=== PATIENT | female | born 1955 | race Asian ===

== ENCOUNTER 2023-12-14 09:40 | Emergency (ER) | payer MEDICARE, OTHER ==
[2023-12-14] MEDS ORDERED: iohexoL-300 100 ML VIAL ONE (09:56)
--- NOTE | 2023-12-14 10:03 | ED Physician Documentation ---
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 She did require a left posterior craniotomy for decompression at that time. She is not anticoagulated and takes amlodipine for blood pressure. Much of the history is from the because of patient's fatigue. She has had chest pressure for the last for 5 days with fatigue such that she stopped exercising. Today at 905 she and her were [place] the way [place] the [place] and they were parked in the car and she had a short episode of shaking with mild confusion afterwards lasting seconds. Now she has left-sided numbness which is contralateral to her prior symptomatology. PD PAST MEDICAL HISTORY - Past Medical History Past Medical History: Yes Neuro: CVA - Past Surgical History Neuro: Other - Allergies Allergies/Adverse Reactions: Allergies Allergy/AdvReac Type Severity Reaction Status Date / Time No Known Drug Allergies Allergy Verified 12/14/23 09:47 - Social History Does the pt smoke?: No Smoking Status: Never smoker PD ED PE NORMAL - Vitals Vital signs reviewed: Yes - General General: Alert and oriented X 3, No acute distress - HEENT HEENT: PERRL, EOMI - Neck Neck: Supple, no meningeal sign, No bony TTP - Cardiac Cardiac: RRR, No murmur - Respiratory Respiratory: No respiratory distress, Clear bilaterally - Abdomen Abdomen: Non tender - Back Back: No CVA TTP - Derm Derm: Normal color, Warm and dry - Extremities Extremities: No edema, No calf tenderness / cord - Neuro Neuro: Alert and oriented X 3 Eye Opening: Spontaneous Motor: Obeys Commands Verbal: Oriented GCS Score: 15 NIHSS - Time Time: 10:01 - Level of Consciousness Level of consciousness: (0) Alert, Keenly responsive LOC Questions: (0) Answers both Q's correct LOC Commands: (0) Performs both correctly - Gaze Best Gaze: (0) Normal - Visual Visual: (0) No loss - Facial Palsy Facial Palsy: (0) Normal, symmetrical movement - Motor Arms (both separate) Motor Arm (right): (0) No drift Motor Arm (left): (0) No drift - Motor Legs (both separate) Motor Leg (right): (1) Drift Motor Leg (left): (0) No drift - Limb Ataxia Limb Ataxia: (0) Absent - Sensory Sensory: (1) Txmi-fs-tvcwumfr loss (Left arm) - Best Language Best Language: (0) No aphasia - Dysarthria Dysarthria: (0) Normal - Extinction and Inattention (formally neg Extinction and inattention: (0) No abnormality - Total Score/Results Total Score/Result: 2 Results - Vitals Vitals: Vital Signs - 24 hr 12/14/23 12/14/23 12/14/23 09:57 12:30 13:00 Temperature 36.5 C Heart Rate 71 54 L 56 L Respiratory 18 13 17 Rate Blood Pressure 147/77 H 150/58 H 131/63 H O2 Saturation 100 99 99 12/14/23 12/14/23 12/14/23 13:30 14:00 14:30 Temperature Heart Rate 55 L 54 L 58 L Respiratory 17 14 16 Rate Blood Pressure 147/56 H 148/59 H 138/68 H O2 Saturation 99 98 98 12/14/23 12/14/23 12/14/23 15:00 15:30 16:00 Temperature Heart Rate 67 55 L 56 L Respiratory 15 17 13 Rate Blood Pressure 155/56 H 148/75 H 148/57 H O2 Saturation 99 99 99 12/14/23 16:30 Temperature Heart Rate 55 L Respiratory 13 Rate Blood Pressure 161/63 H O2 Saturation 99 Oxygen O2 Source Room air - EKG (time done) 1110 EKG releavant findings:: EKG personally interpreted by author of this note. Relevant findings are: Rate: Rate (enter#) (68) Rhythm: NSR [place]: Normal Intervals: Normal IA QRS: Normal Ischemia: Normal ST segments - Labs Labs: Laboratory Tests 12/14/23 12/14/23 12/14/23 10:34 10:34 10:34 WBC 5.7 RBC 4.15 L Hgb 12.6 Hct 37.5 MCV 90.4 MCH 30.4 MCHC 33.6 RDW 11.9 L Plt Count 172 MPV 10.3 Neut # (Auto) 4.3 Lymph # (Auto) 0.9 L Bowman # (Auto) 0.4 Eos # (Auto) 0.1 Baso # (Auto) 0.0 Absolute Nucleated RBC 0.00 Nucleated RBC % 0.0 PT 11.9 INR 1.1 Sodium 132 L Potassium 3.5 Chloride 99 L Carbon Dioxide 28 Anion Gap 5.0 L BUN 9 Creatinine 0.6 Estimated GFR (MDRD) 100 Glucose 91 Calcium 9.0 Total Bilirubin 0.4 AST 15 ALT 15 Alkaline Phosphatase 66 Troponin I High Sens Total Protein 6.4 Albumin 4.1 Globulin 2.3 Albumin/Globulin Ratio 1.8 Lipase 27 12/14/23 10:34 WBC RBC Hgb Hct MCV MCH MCHC RDW Plt Count MPV Neut # (Auto) Lymph # (Auto) Bowman # (Auto) Eos # (Auto) Baso # (Auto) Absolute Nucleated RBC Nucleated RBC % PT INR Sodium Potassium Chloride Carbon Dioxide Anion Gap BUN Creatinine Estimated GFR (MDRD) Glucose Calcium Total Bilirubin AST ALT Alkaline Phosphatase Troponin I High Sens 5.3 Total Protein Albumin Globulin Albumin/Globulin Ratio Lipase - Rads (name of study) CT of the head without contrast demonstrates a old left posterior stroke without acute findings. Relevant Findings:: Final report received, Discussed with rads, EMP independent interpretation of test CTA head and neck without significant vascular disease. Relevant Findings:: Final report received, EMP independent interpretation of test PD Medical Decision Making - ED course ED course: 68-year-old woman with reported history of hemorrhagic stroke in December 2021 presents with now shaking episodes it could be seizure-like activity but it was fairly short, and now new left-sided symptomatology. NIH stroke scale is 2 but the drift in the right leg is probably chronic from the prior stroke. Telestroke consultation was activated and she went over for CT/CTA of the head. Spoke with Dr. Apodaca, telestroke neurologist at 10:15 AM. She agrees that the patient would not be a thrombolytic candidate given her history of hemorrhagic stroke and relatively minor symptoms at this point. Will call me back after CTAs. Recommends MRI if CTA negative. Hold off on aspirin and other antiplatelet agents for now. Spoke with Dr. Apodaca again at 11:05 AM, she agrees that there is no LVO or significant vascular disease. Recommends MRI. Hold off on antiplatelet agent unless she were to have evidence of CVA on MRI. If negative could be discharged for outpatient neurology follow-up. At that time I had reevaluated the patient and her left-sided numbness was all but gone, definitely significantly improved. Waiting for MRI around 5 PM and they requested to leave as they were tired of the wait. They understand they were welcome to return anytime if worse, but at this time her numbness is completely resolved. Departure - Departure Disposition: 01 Home, Self Care Clinical Impression: Stroke-like symptoms Condition: Good Record reviewed to determine appropriate education?: Yes Instructions: ED Paraesthesias Comments: CAT scan and CT angiography of the head and neck were negative for obvious stroke, bleeding, or any issue with the blood vessels. We did see evidence of the old stroke from a few years ago. Our neurologist had recommended MRI but you are understandably became tired of the wait for that, follow-up with your primary care physician with consideration for neurology referral and/or MRI at your leisure. Return for new or worsening symptoms. Forms: PCP List
--- NOTE | 2023-12-14 10:30 | CT Report ---
PROCEDURE: Head W/O Stroke Protocol INDICATIONS: Neuro deficit, acute, stroke suspected TECHNIQUE: Noncontrast 4.5 mm thick angled axial sections acquired from the foramen magnum to the vertex, with c oronal reformats. For radiation dose reduction, the following was used: automated exposure control, adjustment of mA and/or kV according to patient size. COMPARISON: None. FINDINGS: Image quality: Excellent. CSF spaces: Basal cisterns are patent. No extra-axial fluid collections. Ventricles are normal in size and shape. Brain: No midline shift. No intracranial masses or hemorrhage. Wilder-white matter interface is norm al. Intracranial carotid calcifications. Age-related volume loss and small vessel ischemic change. E ncephalomalacia related to a remote moderate-sized left parietal infarct. Skull and face: Calvarium and visualized facial bones are intact, without suspicious lesions. Sinuses: Visualized sinuses and mastoids are clear. IMPRESSION: 1. Remote left-sided moderate excellent. 2. No acute intracranial process. Above discussed with Zenon Roberts MD at the time of dictation on 12/14/2023 at 1027 hours. This study fulfills neurological imaging criteria for inclusion or exclusion of acute stroke therapie s based on available published neurological imaging guidelines. Reviewed by: Zack Jara MD on 12/14/2023 10:29 AM PDT Approved by: Zack Jara MD on 12/14/2023 10:29 AM PDT Station ID: [id number]
--- NOTE | 2023-12-14 10:37 | CT Report ---
PROCEDURE: Angio Head/Neck INDICATIONS: stroke sx TECHNIQUE: After the administration of intravenous contrast, 1 mm thick sections acquired from the aortic arch t hrough the [place] of [place]. 3-dimensional mdgjalm-copgqdyll-sclnjoapqh (MIP) and/or volume renderin g reformats were acquired of the central intracranial vasculature and neck separately. For radiation dose reduction, the following was used: automated exposure control, adjustment of mA and/or kV acco rding to patient size. CONTRAST: 80ml omni 300 COMPARISON: CT head from the same time. FINDINGS: Image quality: Diagnostic. HEAD CT: CSF Spaces: Basal cisterns are patent. No extra-axial fluid collections. Ventricles are normal in size and shape. Brain: A moderate chronic left parietal infarct is noted. Skull and face: Calvarium and visualized facial bones appear intact, without suspicious lesions. Sinuses: Visualized sinuses and mastoids are clear. HEAD CT ANGIOGRAPHY: Anterior circulation: Intracranial internal carotid arteries are normal in size and flow. The flow within the paired anterior cerebral arteries is normal and symmetric. The flow within the middle cer ebral arteries is normal and symmetric. The anterior communicating artery is seen. No aneurysms are seen. Posterior circulation: Visualized portions of the vertebral arteries demonstrate normal caliber, and join to form a normal appearing basilar artery. Flow within the posterior cerebral arteries is norm al and symmetric. No aneurysms are seen. NECK CT ANGIOGRAPHY: Carotid system: The great vessels demonstrate a conventional anatomy as they arise from the aortic a rch. The origins of the common carotid arteries appear patent. The common carotid arteries demonstr ate normal caliber and courses. The bifurcation regions are both widely patent. The internal caroti d arteries demonstrate normal calibers and courses. Posterior circulation: The origins of the vertebral arteries both appear widely patent. The more prieto perior extracranial portions of both vertebral arteries also demonstrate normal courses and calibers. They join to form a normal appearing basilar artery. Soft tissues: Visualized neck soft tissues demonstrate no suspicious abnormalities. Bones: No suspicious bony lesions. Visualized cervical spine appears normally aligned. IMPRESSION: No significant intracranial arterial abnormality is seen. No significant abnormality is seen within the arteries of the neck. Moderate old left parietal infarct. The estimate of stenosis included in the report of the imaging study was calculated using the NASCET method Reviewed by: Zack Jara MD on 12/14/2023 10:35 AM PDT Approved by: Zack Jara MD on 12/14/2023 10:35 AM PDT Station ID: [id number]
[2023-12-14 10:42] LABS: BASOPHILS % (AUTO) 0.4 %; EOSINOPHILS # (AUTO) 0.1 10^3/uL (0.0-0.7); EOSINOPHILS % (AUTO) 0.9 %; HCT - HEMATOCRIT 37.5 % (37.0-47.0); HGB - HEMOGLOBIN 12.6 g/dL (12.0-16.0); LYMPHOCYTES # (AUTO) 0.9 10^3/uL (1.5-3.5); LYMPHOCYTES % (AUTO) 16.6 %; MEAN CORPUSCULAR HEMOGLOBIN 30.4 pg (27.0-31.0); MEAN CORPUSCULAR HGB CONC 33.6 g/dL (32.0-36.0); MEAN CORPUSCULAR VOLUME 90.4 fL (81.0-99.0); MEAN PLATELET VOLUME 10.3 fL (7.9-10.8); MONOCYTES # (AUTO) 0.4 10^3/uL (0.0-1.0); MONOCYTES % (AUTO) 6.3 %; NEUTROPHILS # (AUTO) 4.3 10^3/uL (1.5-6.6); NEUTROPHILS % (AUTO) 75.6 %; PLT - PLATELET COUNT 172 10^3/uL (130-450); RED BLOOD COUNT 4.15 10^6/uL (4.20-5.40); RED CELL DISTRIBUTION WIDTH 11.9 % (12.0-15.0); WHITE BLOOD COUNT 5.7 x10^3/uL (4.8-10.8)
[2023-12-14 10:48] LABS: INR 1.1 (0.8-1.2); PT - PROTHROMBIN TIME 11.9 secs (9.9-12.6)
[2023-12-14 10:58] LABS: ALBUMIN 4.1 g/dL (3.2-5.5); ALBUMIN/GLOBULIN RATIO 1.8 (1.0-2.2); BILIRUBIN,TOTAL 0.4 mg/dL (0.2-1.0); CREATININE 0.6 mg/dL (0.6-1.3); POTASSIUM 3.5 mmol/L (3.5-4.5); TOTAL PROTEIN 6.4 g/dL (6.4-8.9)
[2023-12-14 15:35] VITALS: O2SAT 99
[2023-12-14 17:43] VITALS: BP 169/64
[2023-12-14] MEDS: iohexoL-300 100 ML VIAL IVP ONE (18:05)
== END 2023-12-14 17:54 | disposition home or self-care (01) ==
LOC: ED 09:40
DX: R20.0 Anesthesia of skin (principal); R07.89 Other chest pain; R53.83 Other fatigue
CPT/HCPCS: 36415; 70450; 70496; 70498; 80053; 83690; 84484; 85025; 85610; 93005; 99283; 99284; Q9967